=== PATIENT | female | born 1970 | race Two or more races ===

== ENCOUNTER 2025-01-12 07:20 | Outpatient (CLI) | payer OTHER | END 2025-01-12 07:29 | disposition home or self-care (01) | LOC: TOM 07:20 | PROVIDERS: ATTEND Internal Medicine Gastroenterology | DX: C18.9 Malignant neoplasm of colon, unspecified (principal); R19.5 Other fecal abnormalities; K57.92 Diverticulitis of intestine, part unspecified, without perforation or abscess without bleeding ==